=== PATIENT | male | born 1965 | race Caucasian/White ===

== ENCOUNTER 2017-08-08 07:03 | Day surgery (SDC) | payer MEDICAID ==
[2017-08-08] MEDS ORDERED: Lactated Ringers 1,000 ML IV SCH (07:15)
[2017-08-08] MEDS ORDERED: Midazolam 1 MG/ML 2 ML SDV ONE (08:12)
[2017-08-08] MEDS ORDERED: fentaNYL 100 MCG/2 ML SDV ONE (08:12)
[2017-08-08] MEDS ORDERED: Propofol 200 MG/20 ML SDV ONE (08:12)
--- NOTE | 2017-08-09 08:05 | OR ---
DATE OF PROCEDURE: 08/08/2017 PREOPERATIVE DIAGNOSIS: Colon cancer screening. POSTOPERATIVE DIAGNOSIS: Diverticulosis. PROCEDURE: Colonoscopy to the cecum. SURGEON: Rocael James MD. ANESTHESIA: IV anesthesia with monitored anesthesia care. INDICATION: This 52-year-old white male is referred for a colonoscopy for colon cancer screening. This is his first colonoscopic exam. I counseled him for the procedure, including risks and alternatives, and he gave his informed consent to proceed. DESCRIPTION OF PROCEDURE: The patient was placed in the left lateral decubitus position. IV anesthesia was administered by the Anesthesia Service. Time-out was held. A rectal exam was performed, which was unremarkable. The flexible video Olympus colonoscope was introduced through his anus, up his rectum, and out his colon all the way to the cecum. En route, we saw a few scattered left-sided diverticula. There was no bleeding or inflammation associated with them. Once the cecum was reached, the scope was slowly withdrawn, examining the mucosa throughout. No additional mucosal abnormalities were noted. No neoplastic lesions were seen. The scope was retroflexed in the rectum with the distal rectum appearing unremarkable. The scope was straightened and removed. He tolerated the procedure well. Rocael James MD /[id number]
== END 2017-08-08 09:35 | disposition home or self-care (01) ==
LOC: JP.SDS 07:03
PROVIDERS: ATTEND Surgery
DX: Z12.11 Encounter for screening for malignant neoplasm of colon (principal); K57.30 Diverticulosis of large intestine without perforation or abscess without bleeding; Z88.0 Allergy status to penicillin
CPT/HCPCS: 45378; J2250; J2704; J3010; J7120

== ENCOUNTER 2022-08-31 06:04 | Day surgery (SDC) | payer MEDICAID ==
[2022-08-31] MEDS ORDERED: Dextrose 5%-Lactated Ringers 1,000 ML IV SCH (06:45)
[2022-08-31] MEDS ORDERED: fentaNYL 100 MCG/2 ML SDV ONE (06:57)
[2022-08-31] MEDS ORDERED: Midazolam 1 MG/ML 2 ML SDV ONE (06:57)
[2022-08-31] MEDS ORDERED: Propofol 200 MG/20 ML SDV ONE ×2 (06:57→09:00)
== END 2022-08-31 10:45 | disposition home or self-care (01) ==
LOC: JP.SDS 06:04
PROVIDERS: ATTEND Surgery
DX: Z12.11 Encounter for screening for malignant neoplasm of colon (principal); K57.30 Diverticulosis of large intestine without perforation or abscess without bleeding; E78.5 Hyperlipidemia, unspecified; K21.9 Gastro-esophageal reflux disease without esophagitis; Z88.0 Allergy status to penicillin; Z80.0 Family history of malignant neoplasm of digestive organs; Z79.899 Other long term (current) drug therapy
CPT/HCPCS: 45378; J2250; J2704; J3010; J7121